=== PATIENT | male | born 1960 | race African-American/Black ===

== ENCOUNTER 2020-06-19 04:46 | Emergency (ER) | payer OTHER ==
[~2020-06-19] VITALS: Ht 190.5 cm; Wt 107.3 kg
[2020-06-19] MEDS ORDERED: FEBU40T PO (04:56)
[2020-06-19] MEDS ORDERED: TRAZ-252 PO (04:56)
[2020-06-19] MEDS ORDERED: HYDR-3709 PO (04:56)
[2020-06-19] MEDS ORDERED: OMEP10 PO (04:58)
[2020-06-19] MEDS ORDERED: ATEN-73 PO (04:58)
[2020-06-19] MEDS ORDERED: AMLO-257 PO (04:58)
[2020-06-19 06:23] LABS: BASOPHILS % (AUTO) 1.1 % (0.0-2.0); EOSINOPHILS % (AUTO) 0.6 % (1.0-6.0); HEMATOCRIT 44.5 % (41-53); HEMOGLOBIN 15.4 g/dL (13.5-17.5); LYMPHOCYTES % (AUTO) 18.3 % (22.0-44.0); MEAN CORPUSCULAR HEMOGLOBIN 31.4 pg (26.0-34.0); MEAN CORPUSCULAR HGB CONC 34.5 G/dL (31.0-37.0); MEAN CORPUSCULAR VOLUME 91 fL (80-100); MONOCYTES # (AUTO) 0.8 K/uL (0.1-1.0); MONOCYTES % (AUTO) 7.8 % (2.0-9.0); NEUTROPHILS # (AUTO) 7.8 K/uL (1.8-7.7); NEUTROPHILS % (AUTO) 72.2 % (40.0-70.0); PLATELET COUNT (AUTO) 343 K/uL (150-450)
[2020-06-19 06:36] LABS: PROTHROMBIN TIME 10.3 SEC (9.4-11.6)
[2020-06-19 06:39] LABS: ALANINE AMINOTRANSFERASE 43 U/L (12-78); ALBUMIN 3.4 g/dL (3.4-5.0); ALKALINE PHOSPHATASE 83 U/L (46-116); ANION GAP 4 mmol/L (8-16); ASPARTATE AMINOTRANSFERASE 17 U/L (15-37); BILIRUBIN,TOTAL 0.4 mg/dL (0.1-1.0); CALCIUM, TOTAL 9.8 mg/dL (8.8-10.5); CARBON DIOXIDE 33 mmol/L (22-29); CHLORIDE 102 mmol/L (98-107); CREATINE KINASE, TOTAL ONLY 49 U/L (39-308); GLOMERULAR FILTR. RATE CALC > 60 mL/min (>60); GLUCOSE,RANDOM 151 mg/dL (70-110); SODIUM SERUM 139 mmol/L (136-145); TOTAL PROTEIN, SERUM 6.8 g/dL (6.4-8.2); UREA NITROGEN, BLOOD 16 mg/dL (7-18)
[2020-06-19 06:49] LABS: B-TYPE NATRIURETIC PEPTIDE < 5 pg/mL (0-100)
[2020-06-19 08:55] LABS: FREE T4 (FREE THYROXINE) 0.9 ng/dL (0.76-1.46); THYROID STIMULATING HORMONE 2.56 uIU/mL (0.36-3.74)
[2020-06-19] MEDS ORDERED: POTASSIUM CHLORIDE 10% 40 MEQ/30 ML LIQUID UDCUP PO ONE (09:15)
[2020-06-19] MEDS ORDERED: POTASSIUM CHLORIDE 20 MEQ ER TABLET PO PRN (09:30)
[2020-06-19] MEDS ORDERED: ACETAMINOPHEN 325 MG TABLET PO PRN (09:30)
[2020-06-19] MEDS ORDERED: ATORVASTATIN CALCIUM 20 MG TABLET PO SCH (09:30)
[2020-06-19] MEDS ORDERED: ASPIRIN 81 MG CHEWABLE TABLET PO SCH (09:30)
[2020-06-19] MEDS ORDERED: POTASSIUM CHL 10 MEQ/WATER 50 ML IV PRN (09:30)
[2020-06-19 10:30] LABS: COVID AG,FIA SOURCE NASOPHARYNGEAL
[2020-06-19 11:30] VITALS: BP 120/74
[2020-06-19] MEDS ORDERED: HYDR25TA2 PO (11:34)
[2020-06-19] MEDS ORDERED: HEPARIN SODIUM,PORCINE 5,000 UNITS/ML VIAL SQ SCH (16:00)
[2020-06-19] MEDS ORDERED: DOCUSATE SODIUM 100 MG CAPSULE PO SCH (21:00)
[2020-06-20] MEDS ORDERED: FAMOTIDINE 20 MG TABLET PO SCH (09:00)
== END 2020-06-19 11:41 | disposition admitted as inpatient to this hospital (09) ==
LOC: EMS 04:47 → UNDOADMIN 10:02 → 5S 10:02 → EMS 11:41
DX: E86.9 Volume depletion, unspecified (principal); I10 Essential (primary) hypertension; Z20.822 Contact with and (suspected) exposure to COVID-19
CPT/HCPCS: 84439; 84443; 87426; 93005; 93306; 99285; 36415-L1; 36415-TC; 71045-TC

== ENCOUNTER 2024-05-20 00:18 | Emergency (ER) | payer OTHER ==
[~2024-05-20] VITALS: Ht 193 cm; Wt 106.4 kg
[~2024-05-20 00:18] MED LIST: AMLO-257 PO; ASPI-1450 PO; ATEN-73 PO; DOCU-385 PO; FEBU40T PO; HYDR-3709 PO; LOSA-381 PO; OMEP10CA38 PO; TRAZ-252 PO
[2024-05-20 00:39] VITALS: TEMP 98
[2024-05-20 02:38] LABS: BASOPHILS % (AUTO) 0.9 % (0.0-2.0); HEMOGLOBIN 15.4 g/dL (13.5-17.5); LYMPHOCYTES # (AUTO) 1.9 K/uL (1.0-4.8); LYMPHOCYTES % (AUTO) 23.2 % (22.0-44.0); MEAN CORPUSCULAR HEMOGLOBIN 30.4 pg (26.0-34.0); MEAN CORPUSCULAR HGB CONC 32.7 G/dL (31.0-37.0); MEAN CORPUSCULAR VOLUME 93 fL (80-100); MONOCYTES # (AUTO) 0.8 K/uL (0.1-1.0); MONOCYTES % (AUTO) 9.9 % (2.0-9.0); NEUTROPHILS # (AUTO) 5.3 K/uL (1.8-7.7); PLATELET COUNT (AUTO) 398 K/uL (150-450); RED BLOOD CELL COUNT(AUTO) 5.06 MIL/uL (4.50-5.90); RED CELL DISTRIBUTION WIDTH 13.6 % (11.5-14.5); WHITE BLOOD COUNT (AUTO) 8.2 K/uL (4.5-11.0)
[2024-05-20 03:00] LABS: ANION GAP 2 mmol/L (8-16); B-TYPE NATRIURETIC PEPTIDE 13 pg/mL (0-100); CARBON DIOXIDE 32 mmol/L (22-29); CHLORIDE 104 mmol/L (98-107); CREATININE 1.11 mg/dL (0.60-1.30); GLOMERULAR FILTR. RATE CALC > 60 mL/min (>60); GLUCOSE,RANDOM 97 mg/dL (70-110); SODIUM SERUM 138 mmol/L (136-145); UREA NITROGEN, BLOOD 10 mg/dL (7-18)
[2024-05-20 03:09] LABS: TROPONIN I-HIGH SENSITIVITY 6 ng/L (<76)
[2024-05-20 04:06] VITALS: BP 150/100; PULSE 71; RESP 16; O2SAT 98
== END 2024-05-20 04:13 | disposition home or self-care (01) ==
LOC: EMS 00:33
DX: I10 Essential (primary) hypertension (principal); K21.9 Gastro-esophageal reflux disease without esophagitis; Z79.82 Long term (current) use of aspirin; Z79.899 Other long term (current) drug therapy; Z86.73 Personal history of transient ischemic attack (TIA), and cerebral infarction without residual deficits; Z88.8 Allergy status to other drugs, medicaments and biological substances; Z91.041 Radiographic dye allergy status
CPT/HCPCS: 71045; 80048; 83880; 84484; 85025; 93005; 99285; 36415-L1; 36415-TC